=== PATIENT | male | born 1960 | race Caucasian/White ===

== ENCOUNTER 2019-06-15 14:40 | Outpatient (REF) | payer BC, SELFPAY ==
[2019-06-16 07:40] LABS: COVID-19 RT-PCR UVMMC Result Negative (Negative)
== END 2019-06-15 15:00 ==
LOC: NCHCN 14:40
PROVIDERS: PCP Family Medicine; Visit Provider Physician Assistant
DX: Z11.59 Encounter for screening for other viral diseases (principal)
CPT/HCPCS: U0003

== ENCOUNTER 2019-06-19 18:13 | Outpatient (REF) | payer BC, SELFPAY ==
[2019-06-19 19:05] LABS: HCT 42.1 % (40.0-50.0); HGB 14.3 g/dL (13.5-17.5); Mean Corpuscular Hemoglobin 31.2 pg (27.0-33.0); Mean Corpuscular Volume 91.7 fL (80-95); Mean Platelet Volume 10.3 fL (8.0-11.0); Platelet Count 245 x1000/uL (130-400); RBC 4.59 m/cumm (4.50-6.00); RBC Distribution Width 12.8 % (11.8-14.1); White Blood Cell Count 6.05 k/cumm (4.4-10.8)
[2019-06-19 19:15] LABS: ALT 45 U/L (16-63); AST 19 U/L (15-37); Albumin 3.7 g/dL (3.4-5.0); Alkaline Phosphatase 59 U/L (46-116); Anion Gap 7.9 mmol/L (3-11); BUN 21 mg/dL (7-18); Bilirubin, Total 0.4 mg/dL (0.2-1.0); CO2 28.1 mmol/L (21.0-32.0); CREATININE 1.09 mg/dL (0.70-1.30); Calcium 8.6 mg/dL (8.5-10.1); Calculated LDL 102 mg/dL (<100); Chloride 103 mmol/L (98-107); Cholesterol 193 mg/dL (<200); Glucose 98 mg/dL (74-106); HDL Cholesterol 46 mg/dL (40-60); Potassium 4.2 mmol/L (3.5-5.1); Sodium 139 mmol/L (136-145); Total Protein 6.6 g/dL (6.4-8.2); Triglyceride 226 mg/dL (<150)
[2019-06-19 19:22] LABS: Hemoglobin A1C 5.5 % (3.8-5.6)
[2019-06-21 09:47] LABS: PSA, Screening 1.7 ng/mL (0.0-3.5)
[2019-06-21 10:54] LABS: Hepatitis C Ab w Rflx HCV PCR Negative (Negative)
== END 2019-06-19 18:33 ==
LOC: NCHCN 18:13
PROVIDERS: PCP Family Medicine; Visit Provider Family Medicine
DX: Z00.00 Encounter for general adult medical examination without abnormal findings (principal); K92.1 Melena; Z13.220 Encounter for screening for lipoid disorders; Z13.1 Encounter for screening for diabetes mellitus; Z12.5 Encounter for screening for malignant neoplasm of prostate; Z11.59 Encounter for screening for other viral diseases
CPT/HCPCS: 80053; 80061; 84153; 85027; 86803; 83036

== ENCOUNTER 2019-06-22 08:05 | Outpatient (CLI) | payer BC, SELFPAY ==
--- NOTE | 2019-06-22 14:07 | DI.RAD_ITS ---
EXAM: XR FOOT RT COMPLETE CLINICAL HISTORY: RT FOOT PAIN, M79.671,PROGRESSIVE NON TRAUMATIC PAIN, TENDERNESS BASE RT 5T. TECHNIQUE: 2D digital imaging was performed. COMPARISON: No exams were available for comparison FINDINGS: No acute fracture or dislocation is seen. There are degenerative changes at the talonavicular joint and 1st MTP joint. No suspicious bony erosions. IMPRESSION: Degenerative changes. No acute abnormality.. DATA REPOSITORY: RADIATION DOSE DELIVERED:
== END 2019-06-22 08:25 ==
PROVIDERS: PCP Family Medicine; Visit Provider Family Medicine
DX: M79.671 Pain in right foot (principal); M19.071 Primary osteoarthritis, right ankle and foot
CPT/HCPCS: 73630

== ENCOUNTER 2020-02-15 10:23 | Emergency (ER) | payer OTHER, SELFPAY ==
--- NOTE | 2020-02-15 10:25 | ED.GENADUL_ITS ---
Discharge Plan Disposition Patient Disposition: HOME Condition: Stable Discharge Details Clinical Impression: Right knee sprain Primary Care Provider: Martín Griffith ED Provider: Lyubov Marks Home Meds and New Rx's Prescriptions: Continued tamsulosin 0.4 mg capsule 0.4 mg PO DAILY RF: 0 finasteride 5 mg tablet 5 mg PO DAILY RF: 0 Discharge Instructions Instructions: Knee Sprain (ED) Additional Instructions: Rest, ice, and elevate the affected area as much as possible. Alternate tylenol and motrin as needed and directed for pain. Follow-up with your scheduled appointment with Dr. Espinosa on February 25 and you can discuss any concerns about your right knee if you are still having pain, swelling or any other concerns. Return immediately to the emergency department if you develop any worsening or new concerning symptoms. Stand Alone Forms: Work Release Referrals: Giovani Espinosa MD [ [facility] STAFF PHYSICIAN] - Discharge Data Discharge Date/Time-TO BE ENTERED AT DEPARTURE: 02/15/20 12:37 Discharge Physician: Lyubov Marks Medical Decision Making 59 year-old male presents with right knee injury after slipping on ice when stepping out of his truck at work yesterday. Pain in right medial knee with weightbearing and range of motion. Patient is holding his right knee extended with ambulation. Right knee appears normal, inspection of pain with full flexion and extension. He has pain with Reyes's test medially. There is no ligamentous laxity or pain with valgus stress. Patient referred for x-ray which noted significant degenerative joint disease. Patient has an appointment with Dr. Espinosa for his left knee arthritis with potential surgery. He is advised to discuss with him any need for additional testing or treatment for right knee. Suspect most likely strain at this time but may need an MRI at a later date to confirm meniscal injury. Advised on the importance of RICE. Usual and customary return precautions given prior to discharge. Medical Records Medical records reviewed: Yes I reviewed the patient's medical records. Imaging Data Radiologic Study: Radiologist's impression: XR Right Knee Exam date and time: 02/15/2020 11:25 AM Age: 59 years old Clinical indication: Pain; Knee; Right; Patient HX: Twisting injury/fall. TECHNIQUE: Imaging protocol: XR Right knee. Views: 3 views. COMPARISON: No relevant prior studies available. FINDINGS: Bones/joints: Pathologic medial knee joint space narrowing with femoroacetabular degenerative spurring. Milder spurring in the lateral compartment. Tibial spine and patellofemoral degenerative spurring. No acute fracture or joint effusion. No bone lucencies suspicious for osteonecrosis. Soft tissues: Normal. IMPRESSION: Diffuse knee degenerative disease with pathologic medial knee joint space narrowing but no acute fracture or findings suspicious for osteonecrosis. HPI General Mode of arrival: ambulatory . Date/Time Provider Initiated Documentation: 02/15/20 10:24 . Limitations to Documentation: no limitations . Information obtained by: patient . HPI Narrative: Patient is a 59-year-old male who presents with right knee pain after slipping on ice upon stepping out of his truck at work yesterday. Patient states he feels like he twisted his knee and is now having pain on his medial aspect. He states the pain awoke him from sleep while turning in bed. He states the pain is worse with bending and weightbearing. He has not taken any medication for pain today. Patient states he has an appointment with Dr. Espinosa on February 25 for potential surgery for severe arthritis in his left knee. Related Data Home Medications Medication Instructions Recorded Confirmed finasteride 5 mg PO DAILY 02/15/20 02/15/20 tamsulosin 0.4 mg PO DAILY 02/15/20 02/15/20 Allergies Allergy/AdvReac Type Severity Reaction Status Date / Time No Known Allergies Allergy Unverified 02/15/20 10:40 Review of Systems All systems reviewed & are unremarkable except as noted in HPI and below [facility] Medical History (Updated 02/15/20 @ 12:16 by Lyubov Marks DO) Arthritis Social History Smoking/Tobacco Use Status: Former Tobacco Use Smoking risk assessment performed?: Yes Alcohol Intake: current Alcohol Intake frequency: a few times a week Drug use: Never Substance use type: does not use Do you feel safe at home: Yes Do you feel safe in your relationship?: Yes Exam Const General: cooperative, healthy appearing and no acute distress HENMT Head: normal to inspection Mouth: oral mucosae normal Eyes General: appearance normal, both eyes and all related structures Neck Neck: normal visual inspection Resp Effort & Inspection: normal respiratory effort and able to speak in complete sentences Cardio Rate: regular rate Skin General skin exam: no rashes or lesions noted Neuro General: patient alert, patient awake and patient oriented x3 Motor: muscle tone normal throughout Extrem Other: Pain in right medial knee with range of motion. Tenderness to palpation of right medial knee. Pain with Reyes's test medially. No pain with valgus or varus stress. Negative anterior and posterior drawer test. Right anterior knee with minimal anterior edema, no erythema, ecchymosis, crepit us or open wounds. Right DP/PT pulses intact. Psych Appearance: grossly normal Affect: normal affect
[2020-02-15 10:37] VITALS: BP 122/83; PULSE 63; RESP 16; TEMP 36.5; O2SAT 99
--- NOTE | 2020-02-15 10:45 | DI.RAD_ITS ---
EXAM: XR KNEE RT 3V AP,LAT,ZINA CLINICAL HISTORY: s/p twisting injury, r/o acute fx/effusion TECHNIQUE: COMPARISON: No exams were available for comparison FINDINGS: Three views were obtained. There is marked loss of the medial tibiofemoral cartilaginous joint space . Moderate marginal osteophytes all 3 joints noted. Mild subchondral sclerosis at the medial joint. There is no evidence of acute fracture or dislocation. IMPRESSION: RADIATION DOSE DELIVERED: Total DLP
[2020-02-15] MEDS: Ibuprofen 600 MG TAB PO (11:06)
--- NOTE | 2020-02-15 12:14 | DI.VRAD_ITS ---
PROCEDURE INFORMATION: Exam: XR Right Knee Exam date and time: 02/15/2020 11:25 AM Age: 59 years old Clinical indication: Pain; Knee; Right; Patient HX: Twisting injury/fall. TECHNIQUE: Imaging protocol: XR Right knee. Views: 3 views. COMPARISON: No relevant prior studies available. FINDINGS: Bones/joints: Pathologic medial knee joint space narrowing with femoroacetabular degenerative spurring. Milder spurring in the lateral compartment. Tibial spine and patellofemoral degenerative spurring. No acute fracture or joint effusion. No bone lucencies suspicious for osteonecrosis. Soft tissues: Normal. IMPRESSION: Diffuse knee degenerative disease with pathologic medial knee joint space narrowing but no acute fracture or findings suspicious for osteonecrosis. Dictated and Authenticated by: Slim Luna MD. Ordering:ARJUN Mcarthur MD
[2020-02-15 12:33] VITALS: BP 130/90; PULSE 56; RESP 18; TEMP 36.4; O2SAT 97
== END 2020-02-15 12:37 | disposition home or self-care (01) ==
PROVIDERS: Emergency Provider Physician Assistant; PCP Family Medicine
DX: S83.8X1A Sprain of other specified parts of right knee, initial encounter (principal); W00.0XXA Fall on same level due to ice and snow, initial encounter; X50.9XXA Other and unspecified overexertion or strenuous movements or postures, initial encounter; Y99.0 Civilian activity done for income or pay
CPT/HCPCS: 73562; 99283

== ENCOUNTER 2020-02-28 11:32 | Outpatient (CLI) | payer BC, SELFPAY ==
--- NOTE | 2020-02-28 11:15 | DI.RAD_ITS ---
EXAM: XR KNEE LT 2V AP,LAT CLINICAL HISTORY: knee pain TECHNIQUE: COMPARISON: CR,XR XR KNEE RT 3V AP,LAT,ZINA from 02/15/2020 FINDINGS: Three views were obtained. There is severe narrowing of the medial tibiofemoral cartilaginous joint space mild subchondral sclerosis of the adjacent bones. There are prominent marginal osteophytes of all 3 joints of knee. There is medial subluxation of femur on the tibia IMPRESSION: Severe DJD predominantly involving medial tibiofemoral joint RADIATION DOSE DELIVERED: Total DLP
--- NOTE | 2020-02-28 11:15 | DI.RAD_ITS ---
EXAM: XR STANDING ALIGNMENT CLINICAL HISTORY: knee pain TECHNIQUE: COMPARISON: No exams were available for comparison FINDINGS: AP views both lower extremities were obtained for alignment and leg length determination. There are severe degenerative changes of the medial tibiofemoral joints bilaterally. IMPRESSION: RADIATION DOSE DELIVERED: Total DLP
== END 2020-02-28 11:52 ==
PROVIDERS: PCP Family Medicine; Referring Provider Family Medicine; Visit Provider Physician Assistant
DX: M17.12 Unilateral primary osteoarthritis, left knee (principal); S83.192A Other subluxation of left knee, initial encounter
CPT/HCPCS: 73560; 77073

== ENCOUNTER 2020-03-21 01:22 | Outpatient (CLI) | payer BC, SELFPAY ==
[2020-03-21 11:37] LABS: HCT 44.4 % (40.0-50.0); HGB 14.7 g/dL (13.5-17.5); MCH 30.2 pg (27.0-33.0); MCHC 33.1 % (32.0-36.0); MCV 91.2 fL (80-95); MPV 9.6 fL (8.0-11.0); Platelet Count 206 10^3/uL (130-400); RBC 4.87 10^6/uL (4.36-5.78); RDW 12.2 % (11.8-14.1); WBC 4.99 10^3/uL (4.4-10.8)
[2020-03-21 12:38] LABS: Anion Gap 8.4 mmol/L (3-11); BUN 13 mg/dL (7-18); CO2 28.6 mmol/L (21.0-32.0); Calcium 8.8 mg/dL (8.5-10.1); Chloride 103 mmol/L (98-107); Glucose 101 mg/dL (74-106); Potassium 4.3 mmol/L (3.5-5.1); Sodium 140 mmol/L (136-145)
== END 2020-03-21 01:23 | disposition home or self-care (01) ==
LOC: LBO 01:22
PROVIDERS: PCP Family Medicine; Visit Provider Student in an Organized Health Care Education/Training Program
DX: M25.561 Pain in right knee (principal); M17.11 Unilateral primary osteoarthritis, right knee
CPT/HCPCS: 36415; 80048; 85027

== ENCOUNTER 2020-03-21 02:01 | Outpatient (CLI) | payer BC, SELFPAY ==
[2020-03-22 14:39] LABS: COVID-19 RT-PCR UVMMC Result Negative (Negative)
== END 2020-03-21 02:02 | disposition home or self-care (01) ==
LOC: LBO 02:02
PROVIDERS: PCP Family Medicine; Visit Provider Student in an Organized Health Care Education/Training Program
DX: Z20.822 Contact with and (suspected) exposure to COVID-19 (principal); Z01.818 Encounter for other preprocedural examination
CPT/HCPCS: U0003

== ENCOUNTER 2020-03-26 06:02 | Day surgery (SDC) | payer BC, SELFPAY ==
[2020-03-26] VITALS (9 sets, daily range): BP systolic 98–123; BP diastolic 60–76; PULSE 43–78; RESP 12–16; TEMP 36.3–36.5; O2SAT 94–98
[2020-03-26] MEDS: Gabapentin 300 MG CAP PO (07:15)
[2020-03-26] MEDS: Lactated Ringers 1,000 ML 80 ML IV (07:15)
[2020-03-26] MEDS: Acetaminophen 500 MG TAB 1000 MG PO (07:15)
[2020-03-26] MEDS: Celecoxib 200 MG CAP 400 MG PO (07:16)
--- NOTE | 2020-03-26 07:31 | W.PM.DSUDISC ---
Discharge Plan Disposition Patient Disposition: HOME Condition: Good Discharge Details Reason For Visit: Right KNee DJD Attending Provider: Giovani Espinosa Primary Care Provider: Martín Griffith Home Meds and New Rx's Prescriptions: New acetaminophen 500 mg tablet 500 mg PO Q6H PRN PRN (Reason: pain) Qty: 90 RF: 3 celecoxib 200 mg capsule 200 mg PO BID PRN (Reason: pain) Qty: 60 RF: 1 aspirin 81 mg tablet,delayed release (DR/EC) 81 mg PO BID Qty: 60 RF: 0 docusate sodium [Colace] 100 mg capsule 100 mg PO BID PRNQty: 10 RF: 0 pantoprazole 40 mg tablet,delayed release (DR/EC) 40 mg PO DAILY Qty: 30 RF: 0 gabapentin 300 mg capsule 300 mg PO QHS Qty: 14 RF: 0 oxycodone 5 mg tablet 5 mg PO Q4H Qty: 18 RF: 0 Continued multivitamin Tablet 1 tab PO DAILY RF: 0 tamsulosin 0.4 mg capsule 0.4 mg PO DAILY RF: 0 finasteride 5 mg tablet 5 mg PO DAILY RF: 0 Discharge Instructions Additional Instructions: Total Knee Discharge Instructions Activity: The most important activity is to walk. You should try to take short walks a few times a day. It is important that when resting you work on keeping the knee straight. Avoid putting a pillow behind the knee as this will encourage flexion. Work on range of motion exercises as provided by Physical Therapy. - Start outpatient physical therapy within 2 weeks. - You should wear the KAVYA hose on both legs for 2 weeks. You may remove these at night. You may also use any compression sock in place of the KAVYA hose. Dressing: You may remove the Víctor wrap on your leg 2 days after your surgery and put on the KAVYA stocking given to you from the hospital. Keep the surgical dressing (underneath the VÍCTOR wrap) in place for at least one week. After the first week it may be removed and replaced with light gauze and tape or nothing. The wound and dressing may get wet after 3 days but avoid soaking the dressing or otherwise it will need to be changed. Many people prefer covering the dressing with cling wrap (saran wrap) to minimize it from getting soaked. If it gets wet, just pat dry. If it starts to peel off then it will need to be changed. Medications: - You should take Tylenol and anti-inflammatory Celebrex as your primary pain control medications. If the Celebrex is too expensive or not covered, please call the office for another alternative (Advil/Ibuprofen or Naproxen/Aleve) - You have been prescribed a stronger pain medication Oxycodone for breakthrough pain, take as needed as prescribed. - You have also been prescribed a stomach acid reduction agent Pantoprozole to help reduce stomach acid and reflux. - You have been prescribed Gabapentin to take at night for restlessness and nerve pain. - You will be taking Aspirin 81mg twice a day for DVT prevention unless instructed otherwise. - If you have constipation you should take Colace or Miralax (both [id number]). It takes most people 3-4 days to have a bowel movement. Follow-up: 2 weeks If you have any acute concerns or questions, please do not hesitate to contact the office at [phone]. You may contact Dr. Espinosa with any questions after hours through the hospital at [phone] or on his cell phone at [phone]. Referrals: Giovani Espinosa MD [ [facility] STAFF PHYSICIAN] - Equipment/Supplies: Partial Weight Bearing Crutches Activity:: Activity as Tolerated Shower/Bathe:: 72 hours Diet:: As Tolerated Discharge Orders Discharge Orders: Discharge Order (Routine); Ordered 03/26/20 Ordered By: Giovani Espinosa DS: Diagnosis Discharge Diagnosis (1) Primary osteoarthritis of right knee: Status: Acute
[2020-03-26] MEDS: ceFAZolin 2 GM/50 ML BAG IVPB (07:37)
[2020-03-26] MEDS: Bupivacaine 0.25% Pres-Free 30 ML VIAL (08:26)
[2020-03-26] MEDS: Ketorolac 30 MG/ML VIAL (08:27)
[2020-03-26] MEDS: Normal Saline 20 ML VIAL (08:27)
--- NOTE | 2020-03-26 10:11 | ROE_ITS ---
Date of service: 03/26/20 Time of Service: 09:42 Operative Note Operative Note DATE OF PROCEDURE: 03/26/20 PRE-OP DIAGNOSIS: Right Knee Osteoarthritis POST-OP DIAGNOSIS: same PROCEDURE: Right Total Knee Replacement SURGEON: Giovani Espinosa FUNCTIONAL ARCHITECT: Luis Eduardo Mesa ANESTHESIA: regional and spinal ESTIMATED BLOOD LOSS: 300 PATHOLOGY: none sent TOURNIQUET TIME: 0 COMPLICATIONS: None Patient was transported to: PACU Patient's condition: stable Implants: 1. Depuy Attune Cementless Cruciate Retaining Femoral Component, Size 8 2. Depuy Attune Cementless Rotating Platform Tibial Component, Size 7 3. Depuy Attune 8x6mm CR/RP Poly 4. Depuy Attune Patellar Component, Size 41 Indications: I have seen To in clinic for symptoms of knee arthritis, confirmed with radiographic findings. He has exhausted nonoperative methods and was having significant limitations in daily function and desired better function and less pain. I discussed the technical details of a knee replacement. I explained the risks of the procedure to include, but not limited to, bleeding, infection, pain, stiffness, fracture, damage to nerves and vessels, damage to muscles and tendons, loosening, need for repeat procedure, blood clot and cardiopulmonary demise. Despite these risks, To elected to proceed. Findings: There was significant signs of arthritis throughout the knee with all 3 compartments involved, worse medially. Procedure Description: To was greeted in the preoperative holding area where the correct side was identified and marked. The consent was reviewed with the patient and signed. The history and physical was updated. All questions were answered. Preoperative medications were administered: Acetaminophen 1000mg, Celebrex 400mg, and Gabapentin 300mg. An adductor canal block was then administered by the anesthesia team in the PACU. To was taken back to the operating room. A spinal anesthestic was then administered. The patient was placed into the supine position on the operating room table. A nonsterile tourniquet was placed high onto the leg but only used for cementing. Posts were placed for positioning during the procedure. All bony prominences were well padded. Prophylactic antibiotics in the form of Cefazolin were administered. 1g of Tranxemic Acid was given intravenously within 30 minutes of incision. The right leg was then prepped with Chloraprep a nd draped in a standard fashion with impervious stockinette. A second prep with Chloraprep was performed prior to application of Iodine impregnated skin protection. A timeout to confirm correct identity, side and site, procedure, allergies, anesthesia, and medical concerns was performed. With the knee in some flexion, a midline incision was made overlying the knee. Full thickness skin flaps were raised once the extensor mechanism was encountered. These were raised medially and laterally. Any bleeding was controlled with electrocautery. Once the extensor mechanism was fully exposed, a medial parapatellar arthrotomy was performed in a flexed position. All bleeding from the arthrotomy and the geniculate arteries was coagulated. A medial subperiosteal peel was performed with electrocautery to the midcoronal plane. The fat pad was removed while keeping the patellar tendon protected. The anterior distal femur synovium was removed for later visualization. The ACL and PCL were resected and the anterior horn of the lateral meniscus was transected. The knee was then flexed with the patella everted. Large osteophytes from the tibia were removed. Large osteophytes from the femur were removed. Using a step drill, and based on preoperative templating, the femoral canal was entered. This was done with a step drill without any difficulty. The intramedullary distal femoral cut guide was inserted, set to a 5 degree valgus cut and 9mm cut thickness. There was some hypoplasia of the lateral femoral condyle and any remnant cartilage of the medial femoral condyle was removed for appropriate thickness. The distal femoral cut guide was then held in position and pinned. With the soft tissues protected, the distal cut was performed. This was passed over a few times to ensure a planar cut. I then turned attention to the tibia. The extramedullary guide was placed onto the leg. The distal aspect was slid medial to adjust for position of center of ankle and stay in line with shaft of the tibia. Approximately 3-5 degrees of posterior slope was kept in the proximal cutting guide. The center of the guide was aligned with the PCL. The stylus was used to assess cut thickness. The medial side, most involved side, was set for a 4mm cut. This was then held in position and pinned into place with 2 additional pins and a cross pin for stability. The medial and lateral collateral ligaments were protected and the cut was performed. With this completed, it was assessed and noted to be of appropriate dimensions. The guide was removed. A spacer block was inserted and the knee was brought into extension. The 6mm spacer block provided full extension, without hyperextension and with stability of both the medial and lateral collateral ligaments was assessed. The pins from the femur and the tibia were then removed. The distal femur was then sized. The anterior stylus was placed onto the lateral ridge of the anterior femur. This indicated a size 8 femur. The external rotation of the guide was adjusted to 3 degrees to match the epicondylar axis, perpendicular to [place]?s line. The 4-in-1 cutting guide was the placed. The posterior medial femur cut was evaluated and appeared of good thickness. The spacer block was inserted underneath the cutting guide and stability was confirmed in 90 degrees of flexion. An neyda wing was used to confirm appropriate position of the anterior cut to avoid notching. This cutting guide was ensured to be flush on the cut surface and then pinned into place with headed pins. While protecting the soft tissues, quad tendon, and collateral ligaments, the anterior and posterior cuts were performed with a saw. The central two pins were removed and the posterior and anterior chamfers were cut next. The notch-cutting guide was placed. This was pinned to lateralize the femoral component as much as possible while keeping it flush on the cut surface. This was then pinned into position. A reciprocating saw was used to make the notch cut. A rasp smoothed the cut surfaces. The medial and lateral menisci were removed. A trial femoral component was then inserted, impacted down to the cut surfaces, and the lug holes were drilled. A provisional trial tibial component was placed and the knee was brought through range of motion. There was noted to be excellent extension and flexion. There was no significant instability. The patella was tracking without thumbs. A size 6mm polyethylene component provided the best range of motion and stability with less than 2mm gapping with medial and lateral stress and full extension without significant hyperextension. The tibial cut surface was fully exposed. The tibia was then sized as a 7. The tibia had been previously marked during trialing to correspond to the center of the tibial component to help with rotation. The trial was aligned to this luis eduardo, approximately rotated to the medial 1/3rd of the tibial tubercle. The trial was pinned into place. The tibia was prepared with a reamer and a keel punch and lug holes. The knee was then brought into extension and the patella was measured as 32mm. Using the patellar clamp and cut guide, this was resected to a flat surface with at least 13mm of thickness remaining. The size 41 patella fit the best. This was oriented and then clamped into position. The lugs were drilled. The trial components were removed. The final components were opened on the back table. The periosteal and capsular tissues, especially posteriorly, around the knee were then systematically injected with a periarticular cocktail consisting of 50cc 0.25% Marcaine, 30mg Ketorolac, 20cc of Exparal and 50cc of injectable saline. The knee was thoroughly irrigated with a pulse lavage and dried. Irrisept was also used to irrigate the tissues. On the back table, with the implants opened, the cement was mixed. One batche of high viscosity cement were prepared with vacuum assistance. After the cement was ready a small amount was placed on the cut surface of the patella and the patellar button was clamped into position and held. During this process attention was turned to the gutters of the knee and for all interfaces for any excess cement. While the cement was hardening, the cementless knee components were placed. Starting with the tibial component, the tibia was subluxed anteriorly and the lug holes of the component were lined up. The tibia was then impacted with an impactor and mallet until the tibial component was in contact with the tibia. The final polyethylene component was inserted. Then, the femoral component was inserted. The lug holes were aligned and the component was impacted into position. The knee was irrigated with Irrisept chlorhexadine solution. This was allowed to sit in the knee for 3 minutes. After the cement had finally cured, approximately 15min, the clamp was removed from the patella and the knee was taken through range of motion. The patella was tracking with a no-thumbs technique. The capsule was then reapproximated with a No. 1 Vicryl at multiple locations. The capsule was finally closed with a No. 2 Stratafix, barbed suture. The tourniquet was then released and the arthrotomy appeared watertight without significant bleeding. The second dosing of 1g TXA was started. Deep tissues were then reapproximated with 0 Vicryl and 2-0 Vicryl. The skin was closed with a running 3-0 Monocryl in a subcuticular fashion. This was reinforced with skin glue. A Mepilex silver dressing was applied along with a nobj-os-movop UVALDO wrap. A CryoCuff was applied. To was transferred to the hospital bed without difficulty and suffering no apparent complication. To has a good prognosis. Physical therapy will start today and without restrictions, weight-bearing as tolerated. Aspirin 81mg BID will be used for DVT prophylaxis.
[2020-03-26] MEDS: oxyCODONE 5 MG TAB PO ×2 (11:31→13:06)
--- NOTE | 2020-03-26 12:40 | PT.INIE ---
Date of service: 03/26/20 Time of Service: 12:40 PT Notes Visit Reasons: Right KNee DJD Physical Therapy Day Surgery Initial Evaluation Date: 03/26/2020 Referring Doctor: Giovani Espinosa MD PT Orders: PT CONSULT: Status post Ortho surgery. Precautions: WBAT on right LE. Patient Profile/Admitting Diagnosis: Ghanshyam is a 59-year-old male with primary unilateral osteoarthritis of the right knee and is status post right total knee arthroplasty on postoperative day 0. PMHX: Medical History (Updated 03/21/20 @ 10:56 by Kristin Medrano) Arthritis BPH (benign prostatic hyperplasia) Lumbar spine pain L4-L5 cartilage damage - 1988 Went to [facility] - did 6 months of PT and had improvement Surgical History (Updated 03/21/20 @ 10:23 by Kristin Medrano) Fingers fractured S/P Perc pinning Status post arthroscopy of left knee Social History/Home Situation: Lives alone in an apartment with a flight of stairs down to where his bedroom is with rails on both sides. He has 2 steps that lead onto a landing plus another 4 steps to enter the apartment building. States that he has friends who will be willing to help out as needed while he recovers at home. Indicated that his house has been organized and set up to be handicap-accessible. Equipment Owned/DME: None Subjective: Agreeable to PT consult. Reports up to 7/10 pain in the right knee after ambulation activity. Complains about some minimal popping on the outer side of the right knee with weight bearing. Denies headache, chest pain, and dizziness throughout. No report of numbness nor tingling in bilateral lower extremities. Objective: General Observation: Supine in stretcher. UVALDO wraps to right LE. Cryo/Cuff on right knee. TEDS on left leg. DIPs in the right hand flexed and ulnarly deviated. Mental Status: Alert and oriented x4. Pain: 7/10 in the lateral right knee with ambulation activity that subsided rest and pain pill given by nurse Barron ROM: Right Upper Extremity: Shoulder Flexion WFL. Shoulder abduction WFL. Elbow flexion WFL. Wrist flexion WFL. Functional opening and closing of hand WFL. Left Upper Extremity: Shoulder Flexion WFL. Shoulder abduction WFL. Elbow flexion WFL. Wrist flexion WFL. Functional opening and closing of hand WFL. Right Lower Extremity: Hip flexion WFL. Hip abduction WFL. Knee flexion 10 degrees to 80 degrees with pain at end range of motion. Extension -10 degrees ankle dorsiflexion WFL. Ankle plantarflexion WFL. Left Lower Extremity: Hip flexion WFL. Hip abduction WFL. Knee flexion WFL. Ankle dorsiflexion WFL. Ankle plantarflexion WFL. Strength: Right Upper Extremity: Shoulder flexors 5/5. Shoulder abductors 5/5. Elbow flexors 5/5. Elbow extensors 5/5. Temporary Staff Accountant strong. Left Upper Extremity: Shoulder flexors 5/5. Shoulder abductors 5/5. Elbow flexors 5/5. Elbow extensors 5/5. Temporary Staff Accountant strong. Right Lower Extremity: Hip flexors 4/5. Hip abductors 4/5. Knee flexors 3-/5. Knee extensors 3-/5. Ankle dorsiflexors 5/5. Ankle plantarflexors 5/5. Left Lower Extremity:Hip flexors 5/5. Hip abductors 5/5. Knee flexors 5/5. Knee extensors 5/5. Ankle dorsiflexors 5/5. Ankle plantarflexors 5/5. Sensation: Intact as to pain and light pressure in bilateral lower extremities Bed Mobility/Transfers: Rolling independent Supine to sit independent Sit to supine independent Sit to stand contact-guard assist Stand to sit contact-guard assist Bed to chair contact-guard assist Chair to bed contact-guard assist Gait: Guided patient through level surface ambulation of 30 feet using the front wheeled walker with standby assist. Also trained and educated patient on the use of bilateral axillary crutches using three-point gait pattern for a distance of 200 feet requiring moderate verbal cueing for safe gait pattern with standby assist of nurse Barron for safety. Pain reported increased to 7/10 in the right knee. Stairs: Also assisted with stair negotiation techniques for 10 x 4 inch steps while holding onto 1 rail with 1 hand and using a crutch on the other hand using step to gait pattern with contact-guard assist and standby assist of nurses Celina Cortez and Gabriela saavedra. Moderate verbal cueing given for correct technique. Balance: Static Sitting: Normal Dynamic Sitting: Normal Static Standing: Good Dynamic Standing: Fair Special Tests: Mobility Limitations Standardized Measure [facility] AM-PAC 6 clicks Basic Mobility Inpatient Short Form: Raw Score: 21 CMS Score: 29% deficit Informed Consent/Education: Patient instructed in purpose of PT consult. Packet containing TKA exercise protocol has been given to patient. Education and training on initial set of exercises that can be done at home have been completed with patient. Assessment: Skip requires the use of bilateral axillary crutches to reduce fall risk and maximize independence at home. It was emphasized to him to slow down with each step as he tends to move quickly and increase his risk for losing balance. He was also advised that he has the option of using the front-wheeled walker for more support should his pain level increase. Patient presents with clinical signs and symptoms consistent with current/admitting diagnoses that have resulted to mobility limitations, gait instability, generalized weakness, and impairment of motor control as demonstrated by the following impairment level findings: 1. Decreased strength to right knee major muscle groups 2. Impaired standing balance 3. Limitation of joint range of motion in right knee Impairments are contributing to the following functional limitations: 1. Inability to safely ambulate without assistive device 2. Increase completion time for mobility ADL performance 3. Increased fall risk Patient is assessed as a 16969 moderate complexity based on the following: History: 59-year-old male with impairment level findings, functional limitations, and past medical history as indicated above Examination: Demonstrable impairment in strength, balance, and mobility level with underlying impairments and functional limitations as documented above Presentation: Evolving Decision Makin moderate complexity Goals: N/A. PT evaluation and 1-2 treatment sessions only for functional mobility training using recommended AD and for HEP instruction. Plan of Care/Treatment Plan: N/A. PT evaluation and 1-2 treatment session only for functional mobility training using recommended AD and for HEP instruction. DISCHARGE RECOMMENDATIONS: Home when medically cleared by orthopedic surgeon. Has a front wheeled walker and bilateral axillary crutches for use at home as needed. May benefit from outpatient PT services in order to facilitate return to unassisted ambulation in the community as previously. TREATMENT CODE/TIME: 61197 x 30 minutes, 22382 x 10 minutes beginning at 12:40 PM. Thank you for the opportunity to participate in the care of this patient. Treva Wiley PT, DPT, CLT [facility] [place], [place]
== END 2020-03-26 14:27 | disposition home or self-care (01) ==
PROVIDERS: PCP Family Medicine; Visit Provider Student in an Organized Health Care Education/Training Program
PROC: (CPT 27447; principal; 2020-03-26 07:30)
DX: M17.11 Unilateral primary osteoarthritis, right knee (principal); M25.561 Pain in right knee; Z96.651 Presence of right artificial knee joint; G89.18 Other acute postprocedural pain
CPT/HCPCS: 27447; C1776; 76942; 97162; 97530; J0690; J1885; J2001; J2250; J2405

== ENCOUNTER 2020-04-11 10:29 | Outpatient (CLI) | payer BC, SELFPAY ==
--- NOTE | 2020-04-11 09:00 | DI.RAD_ITS ---
EXAM: XR STANDING ALIGNMENT CLINICAL HISTORY: 1ST POST OP R TKA. TECHNIQUE: 2D digital imaging was performed. COMPARISON: CR,XR XR KNEE RT 3V AP,LAT,ZINA from 02/15/2020 CR XR KNEE LT 2V AP,LAT from 02/28/2020 CR XR STANDING ALIGNMENT from 02/28/2020 CR XR KNEE LT 2V AP,LAT from 02/28/2020 CR XR KNEE LT 1V from 04/11/2020 CR XR KNEE LT 1V from 04/11/2020 CR XR KNEE RT 1V from 04/11/2020 FINDINGS: Hip joint spaces are well maintained. There is mild acetabular spurring) greater than left. There i s a mild overall leg length discrepancy at the level of the femoral heads, with the left femoral head projecting 8 millimeters superior to the right. There is a left knee prosthesis. Alignment appears satisfactory. There is there are no abnormal bony lucencies. There is severe degenerative changes of right knee greater medially. Mild degenerative changes of the ankles. IMPRESSION: Severe degenerative changes of the left knee. Right knee prosthesis. Mild leg length discrepancy. DATA REPOSITORY: RADIATION DOSE DELIVERED:
== END 2020-04-11 10:30 | disposition home or self-care (01) ==
LOC: DIORS 10:29
PROVIDERS: PCP Family Medicine; Referring Provider Family Medicine; Visit Provider Student in an Organized Health Care Education/Training Program
DX: Z96.651 Presence of right artificial knee joint (principal); M17.12 Unilateral primary osteoarthritis, left knee; M21.752 Unequal limb length (acquired), left femur
CPT/HCPCS: 73560; 77073

== ENCOUNTER 2020-04-23 06:19 | Day surgery (SDC) | payer BC, SELFPAY ==
[2020-04-23] VITALS (10 sets, daily range): BP systolic 104–146; BP diastolic 66–82; PULSE 49–82; RESP 10–16; TEMP 36–36.6; O2SAT 97–100
[2020-04-23] MEDS: Lactated Ringers 1,000 ML 80 ML IV (06:56)
[2020-04-23] MEDS: Celecoxib 200 MG CAP 400 MG PO (06:56)
[2020-04-23] MEDS: Acetaminophen 500 MG TAB 1000 MG PO (06:56)
[2020-04-23] MEDS: Gabapentin 300 MG CAP PO (06:57)
--- NOTE | 2020-04-23 07:16 | W.PM.DSUDISC ---
Discharge Plan Disposition Patient Disposition: HOME Condition: Good Discharge Details Reason For Visit: L Knee DJD Attending Provider: Giovani Espinosa Primary Care Provider: Martín Griffith Home Meds and New Rx's Prescriptions: Continued multivitamin Tablet 1 tab PO DAILY RF: 0 acetaminophen 500 mg tablet 500 mg PO Q6H PRN PRN (Reason: pain) Qty: 90 RF: 3 pantoprazole 40 mg tablet,delayed release (DR/EC) 40 mg PO DAILY Qty: 30 RF: 0 tamsulosin 0.4 mg capsule 0.4 mg PO DAILY RF: 0 finasteride 5 mg tablet 5 mg PO DAILY RF: 0 aspirin 81 mg tablet,delayed release (DR/EC) 81 mg PO BID Qty: 60 RF: 0 oxycodone 10 mg tablet 10 mg PO Q4H MDD 60mg PRN (Reason: pain) Qty: 18 RF: 0 Discontinued celecoxib 200 mg capsule 200 mg PO BID PRN (Reason: pain) Qty: 60 RF: 1 Discharge Instructions Additional Instructions: Total Knee Discharge Instructions Activity: The most important activity is to walk. You should try to take short walks a few times a day. It is important that when resting you work on keeping the knee straight. Avoid putting a pillow behind the knee as this will encourage flexion. Work on range of motion exercises as provided by Physical Therapy. - Start outpatient physical therapy within 2 weeks. - You should wear the KAVYA hose on both legs for 2 weeks. You may remove these at night. You may also use any compression sock in place of the KAVYA hose. Dressing: You may remove the Víctor wrap on your leg 2 days after your surgery and put on the KAVYA stocking given to you from the hospital. Keep the surgical dressing (underneath the VÍCTOR wrap) in place for at least one week. After the first week it may be removed and replaced with light gauze and tape or nothing. The wound and dressing may get wet after 3 days but avoid soaking the dressing or otherwise it will need to be changed. Many people prefer covering the dressing with cling wrap (saran wrap) to minimize it from getting soaked. If it gets wet, just pat dry. If it starts to peel off then it will need to be changed. Medications: - You should take Tylenol and anti-inflammatory Ibuprofen (600mg) as your primary pain control medications. - You have been prescribed a stronger pain medication Oxycodone for breakthrough pain, take as needed as prescribed. - You have also been prescribed a stomach acid reduction agent Pantoprozole to help reduce stomach acid and reflux. - You will be taking Aspirin 81mg twice a day for DVT prevention unless instructed otherwise. - If you have constipation you should take Colace or Miralax (both [id number]). It takes most people 3-4 days to have a bowel movement. Follow-up: 2 weeks If you have any acute concerns or questions, please do not hesitate to contact the office at [phone]. You may contact Dr. Espinosa with any questions after hours through the hospital at [phone] or on his cell phone at [phone]. Referrals: Giovani Espinosa MD [ [facility] STAFF PHYSICIAN] - Equipment/Supplies: Partial Weight Bearing Crutches Shower/Bathe:: 72 hours Diet:: As Tolerated Discharge Orders Discharge Orders: Discharge Order (Routine); Ordered 04/23/20 Ordered By: Giovani Espinosa DS: Diagnosis Discharge Diagnosis (1) Post-traumatic osteoarthritis of left knee: Status: Acute (2) History of total right knee replacement: Status: Acute
[2020-04-23] MEDS: ceFAZolin 2,000 MG in Normal Saline 100 ML 200 MG IVPB (07:32)
[2020-04-23] MEDS: Bupivacaine 0.25% Pres-Free 30 ML VIAL (08:58)
[2020-04-23] MEDS: Normal Saline 20 ML VIAL (08:58)
[2020-04-23] MEDS: Ketorolac 30 MG/ML VIAL (08:58)
--- NOTE | 2020-04-23 09:15 | ROE_ITS ---
Date of service: 04/23/20 Time of Service: 09:15 Operative Note Operative Note DATE OF PROCEDURE: 04/23/20 PRE-OP DIAGNOSIS: Left Knee Osteoarthritis and Right Knee Arthrofibrosis POST-OP DIAGNOSIS: same PROCEDURE: Left Total Knee Replacement and Right Knee Manipulation Under Anesthesia SURGEON: Giovani Espinosa SCENIC DESIGNER: Luis Eduardo Mesa ANESTHESIA TYPE: Spinal Refer to Anesthesia Record ESTIMATED BLOOD LOSS: 300 PATHOLOGY: none sent TOURNIQUET TIME: 0 COMPLICATIONS: None Patient was transported to: PACU Patient's condition: stable Implants: 1. Depuy Attune Cementless Cruciate Retaining Femoral Component, Size 8 2. Depuy Attune Cementless Rotating Platform Tibial Component, Size 7 3. Depuy Attune 8x5mm CR/RP Poly 4. Depuy Attune Patellar Component, Size 38mm Indications: I have seen To in clinic for symptoms of knee arthritis, confirmed with radiographic findings. He has exhausted nonoperative methods and was having significant limitations in daily function and desired better function and less pain. I discussed the technical details of a knee replacement. He has had good success with the right knee replacement except for mild stiffness. Once again, I explained the risks of the procedure to include, but not limited to, bleeding, infection, pain, stiffness, fracture, damage to nerves and vessels, damage to muscles and tendons, loosening, need for repeat procedure, blood clot and cardiopulmonary demise. Despite these risks, he elected to proceed. Findings: The right knee was manipulated under anesthesia going from 105 degrees of flexion to 125 degrees of flexion. There was significant signs of arthritis throughout the knee with notable medial osteophytes. Procedure Description: To was greeted in the preoperative holding area where the correct side was identified and marked. The consent was reviewed with the patient and signed. The history and physical was updated. All questions were answered. Preoperative medications were administered: Acetaminophen 1000mg, Celebrex 400mg, and Gabapentin 300mg. An adductor canal block was then administered by the anesthesia team in the PACU. He was taken back to the operating room. A spinal anesthestic was then administered. The patient was placed into the supine position on the operating room table. Posts were placed for positioning during the procedure. All bony prominences were well padded. Prophylactic antibiotics in the form of Cefazolin were administered. 1g of Tranxemic Acid was given intravenously within 30 minutes of incision. A timeout to confirm correct identity, side and site, procedure, allergies, anesthesia, and medical concerns was performed. A manipulation was then performed of the right leg. Treatment ablation range of motion was recorded as 5 to 105 degrees. Gentle flexion force was applied to the proximal tibia and there was some notable crepitus felt proximal to the patella. This was cycled a few times and repeated. After manipulation, the range of motion was recorded from 5 to 125 degrees. The left leg was then prepped with Chloraprep and draped in a standard fashion with impervious stockinette. A second prep with Chloraprep was performed prior to application of Iodine impregnated skin protection. With the knee in some flexion, a midline incision was made overlying the knee. Full thickness skin flaps were raised once the extensor mechanism was encountered. These were raised medially and laterally. Any bleeding was controlled with electrocautery. Once the extensor mechanism was fully exposed, a medial parapatellar arthrotomy was performed in a flexed position. All bleeding from the arthrotomy and the geniculate arteries was coagulated. A medial subperiosteal peel was performed with electrocautery to the midcoronal plane. Due to the significant varus deformity the entire medial tibial plateau was exposed. The fat pad was removed while keeping the patellar tendon protected. The anterior distal femur synovium was removed for later visualization. The ACL and PCL were resected and the anterior horn of the lateral meniscus was transected. The knee was then flexed with the patella everted. Large osteophytes from the tibia were removed. Large osteophytes from the femur were removed. Using a step drill, and based on preoperative templating, the femoral canal was entered. This was done with a step drill without any difficulty. The intramedullary distal femoral cut guide was inserted, set to a 5 degree valgus cut and 9mm cut thickness. The distal femoral cut guide was then held in po sition and pinned. With the soft tissues protected, the distal cut was performed. This was passed over a few times to ensure a planar cut. I then turned attention to the tibia. The extramedullary guide was placed onto the leg. The distal aspect was slid medial to adjust for position of center of ankle and stay in line with shaft of the tibia. Approximately 3-5 degrees of posterior slope was kept in the proximal cutting guide. The center of the guide was aligned with the PCL. The stylus was used to assess cut thickness. The medial side, most involved side, was set for a 3mm cut, corresponding to 7mm laterally. This was then held in position and pinned into place with 2 additional pins and a cross pin for stability. The medial and lateral collateral ligaments were protected and the cut was performed. With this completed, it was assessed and noted to be of appropriate dimensions. The guide was removed. A spacer block was inserted and the knee was brought into extension. The 5mm spacer block provided full extension, without hyperextension and with stability of both the medial and lateral collateral ligaments was assessed. The pins from the femur and the tibia were then removed. The distal femur was then sized. The anterior stylus was placed onto the lateral ridge of the anterior femur. This indicated a size 8 femur. The external rotation of the guide was adjusted to 3 degrees to match the epicondylar axis, perpendicular to Jitendra?s line. The 4-in-1 cutting guide was the placed. The posterior medial femur cut was evaluated and appeared of good thickness. The spacer block was inserted underneath the cutting guide and stability was confirmed in 90 degrees of flexion. An neyda wing was used to confirm appropriate position of the anterior cut to avoid notching. This cutting guide was ensured to be flush on the cut surface and then pinned into place with headed pins. While protecting the soft tissues, quad tendon, and collateral ligaments, the anterior and posterior cuts were performed with a saw. The central two pins were removed and the posterior and anterior chamfers were cut next. The notch-cutting guide was placed. This was pinned to lateralize the femoral component as much as possible while keeping it flush on the cut surface. This was then pinned into position. A reciprocating saw was used to make the notch cut. A rasp smoothed the cut surfaces. The medial and lateral menisci were removed. A trial femoral component was then inserted, impacted down to the cut surfaces, and the lug holes were drilled. A provisional trial tibial component was placed and the knee was brought through range of motion. There was noted to be excellent extension and flexion. There was no significant instability. The patella was tracking without thumbs. A size 5mm polyethylene component provided the best range of motion and stability with less than 2mm gapping with medial and lateral stress and full extension without significant hyperextension. The tibial cut surface was fully exposed. The tibia was then sized as a 7. The tibia had been previously marked during trialing to correspond to the center of the tibial component to help with rotation. The trial was aligned to this luis eduardo, approximately rotated to the medial 1/3rd of the tibial tubercle. The trial was pinned into place. The tibia was prepared with a reamer and a keel punch and lug holes. The knee was then brought into extension and the patella was measured as 32mm. Using the patellar clamp and cut guide, this was resected to a flat surface with at least 13mm of thickness remaining. The size 38 patella fit the best. This was oriented and then clamped into position. The lugs were drilled. The trial components were removed. The final components were opened on the back table. The periosteal and capsular tissues, especially posteriorly, around the knee were then systematically injected with a periarticular cocktail consisting of 50cc 0.25% Marcaine, 30mg Ketorolac, 20cc of Exparal and 50cc of injectable saline. The knee was thoroughly irrigated with a pulse lavage and dried. Irrisept was also used to irrigate the tissues. On the back table, with the implants opened, the cement was mixed. One batch of high viscosity cement was prepared with vacuum assistance. After the cement was ready a small amount was placed on the cut surface of the patella and the patellar button was clamped into position and held. While the cement was hardening, the cementless knee components were placed. Starting with the tibial component, the tibia was subluxed anteriorly and the lug holes of the component were lined up. The tibia was then impacted with an impactor and mallet until the tibial component was in contact with the tibia. The final polyethylene component was inserted. Then, the femoral component was inserted. The lug holes were aligned and the component was impacted into position. The knee was irrigated with Irrisept chlorhexadine solution. This was allowed to sit in the knee for 3 minutes. After the cement had finally cured, approximately 15min, the clamp was removed from the patella and the knee was taken through range of motion. The patella was tracking with a no-thumbs technique. The capsule was then reapproximated with a No. 1 Vicryl at multiple locations. The capsule was finally closed with a No. 2 Stratafix, barbed suture. The second dosing of 1g TXA was started. Deep tissues were then reapproximated with 0 Vicryl and 2-0 Vicryl. The skin was closed with a running 3-0 Monocryl in a subcuticular fashion. This was reinforced with skin glue. A Mepilex silver dressing was applied along with a [id number] UVALDO wrap. A CryoCuff was applied. Forrest was transferred to the hospital bed without difficulty an suffering no apparent complication. He has a good prognosis. Physical therapy will start today and without restrictions, weight-bearing as tolerated. Aspirin 81mg BID will be used for DVT prophylaxis.
[2020-04-23] MEDS: oxyCODONE 5 MG TAB 10 MG PO (12:30)
--- NOTE | 2020-04-23 13:18 | IN_ITS ---
Date of service: 04/23/20 Time of Service: 13:18 PT Notes Visit Reasons: L Knee DJD Physical Therapy Day Surgery Unit Initial Evaluation Date: 04/23/2020 Referring Doctor: Giovani Espinosa MD PT Orders: PT CONSULT: Status post Ortho surgery. Precautions: WBAT on L LE. Patient Profile/Admitting Diagnosis: Ghanshyam is a 59-year-old male with primary unilateral osteoarthritis of the left knee and is status post left total knee arthroplasty and manipulation under anesthesia on the right knee on postoperative day 0. PMHX: Medical History (Updated 04/11/20 @ 13:46 by SRINIVAS Orellana) Arthritis BPH (benign prostatic hyperplasia) Lumbar spine pain L4-L5 cartilage damage - 1988 Went to [facility] - did 6 months of PT and had improvement Surgical History (Updated 04/11/20 @ 13:46 by SRINIVAS Orellana) Fingers fractured S/P Perc pinning History of total right knee replacement (03/26/20) Status post arthroscopy of left knee Social History/Home Situation: Lives alone in an apartment with a flight of [employer] down to where his bedroom is, rails on both sides. He has 2 steps that lead onto a landing plus another 4 steps to enter the apartment building. States that he has friends who will be willing to help out as needed while he recovers at home. Indicated that his house has been organized and set up to be handicap-accessible. Equipment Owned/DME: FWW, forearm crutches Subjective: Agreeable to PT consult. Reports no pain in either the right or the left knee after ambulation activity. Denies headache, chest pain, and dizziness throughout. No report of numbness nor tingling in bilateral lower extremities. Objective: General Observation: Supine in DSU stretcher. UVALDO wraps to left LE. Cryo/Cuff on left knee. TEDS on R leg. DIPs in the right hand flexed and ulnarly deviated. Mental Status: Alert and oriented x4. Pain: 0/10 ROM: Right Upper Extremity: Shoulder Flexion WFL. Shoulder abduction WFL. Elbow flexion WFL. Wrist flexion WFL. Functional opening and closing of hand WFL. Left Upper Extremity: Shoulder Flexion WFL. Shoulder abduction WFL. Elbow flexion WFL. Wrist flexion WFL. Functional opening and closing of hand WFL. Right Lower Extremity: Hip flexion WFL. Hip abduction WFL. Knee flexion 10 degrees to 100 degrees with pain at end range of motion. Knee extension -10 degrees. Ankle dorsiflexion WFL. Ankle plantarflexion WFL. Left Lower Extremity: Hip flexion WFL. Hip abduction WFL. Knee flexion 20 degrees to 95 degrees. Knee extension -20 degrees. Ankle dorsiflexion WFL. Ankle plantarflexion WFL. Strength: Right Upper Extremity: Shoulder flexors 5/5. Shoulder abductors 5/5. Elbow flexors 5/5. Elbow extensors 5/5. Monumental Stonemason strong. Left Upper Extremity: Shoulder flexors 5/5. Shoulder abductors 5/5. Elbow flexors 5/5. Elbow extensors 5/5. Monumental Stonemason strong. Right Lower Extremity: Hip flexors 4/5. Hip abductors 4/5. Knee flexors 3-/5. Knee extensors 3-/5. Ankle dorsiflexors 5/5. Ankle plantarflexors 5/5. Left Lower Extremity:Hip flexors 5/5. Hip abductors 5/5. Knee flexors 3-/5. Knee extensors 3-/5. Ankle dorsiflexors 5/5. Ankle plantarflexors 5/5. Sensation: Intact as to pain and light pressure in bilateral lower extremities Bed Mobility/Transfers: Rolling independent Supine to sit independent Sit to supine independent Sit to stand contact-guard assist Stand to sit contact-guard assist Bed to chair contact-guard assist Chair to bed contact-guard assist Gait: Guided patient through level surface ambulation of 200 feet using the front wheeled walker with standby assist of PT and wheelchair follow of nurse marble installer supervisor Ariela. Step through heel?toe gait pattern. Patient tends to be impulsive and required minimal cueing for safety. Stairs: Also assisted with stair negotiation techniques for 10 x 4 inch steps while holding onto 1 rail with 1 hand and using a Loftstrand crutch on the other hand using step-to gait pattern with contact-guard assist and standby assist of nurse marble installer supervisor True Lopez for safety. Moderate verbal cueing given for correct technique. Patient tends to be impulsive and required minimal cueing for safety. Balance: Static Sitting: Normal Dynamic Sitting: Normal Static Standing: Good Dynamic Standing: Fair Special Tests: Mobility Limitations Standardized Measure [facility]-P[facility] 6 clicks Basic Mobility Inpatient Short Form: Raw Score: 23 CMS Score: 11% deficit Informed Consent/Education: Patient instructed in purpose of PT consult. Packet containing TKA exercise protocol has been given to patient. Education and training on initial set of exercises that can be done at home have been completed with patient. Assessment: Skip requires the use of front wheeled walker or bilateral Loftstrand crutches to reduce fall risk and maximize independence at home. Again, it was emphasized to him to slow down with each step as he tends to move quickly and increase his risk for losing balance. He was also advised that he has the option of using the front-wheeled walker for more support should his pain level increase. Patient presents with clinical signs and symptoms consistent with current/admitting diagnoses that have resulted to mobility limitations, gait instability, generalized weakness, and impairment of motor control as demonstrated by the following impairment level findings: 1. Decreased strength to left knee major muscle groups 2. Impaired standing balance 3. Limitation of joint range of motion in left knee Impairments are contributing to the following functional limitations: 1. Inability to safely ambulate without assistive device 2. Increase completion time for mobility ADL performance 3. Increased fall risk Patient is assessed as a [id number] moderate complexity based on the following: History: 59-year-old male with impairment level findings, functional limitations, and past medical history as indicated above Examination: Demonstrable impairment in strength, balance, and mobility level with underlying impairments and functional limitations as documented above Presentation: Evolving Decision Makin moderate complexity Goals: N/A. PT evaluation and 1-2 treatment sessions only for functional mobility training using recommended AD and for HEP instruction. Plan of Care/Treatment Plan: N/A. PT evaluation and 1-2 treatment session only for functional mobility training using recommended AD and for HEP instruction. PT INTERVENTION RECEIVED TODAY: Assessment for and fitting of appropriate assistive device. Guided patient through bed mobility, transfers, and mobility ADL performance on level surfaces using front wheeled walker and Loftstrand crutches for stairs in order to reduce fall risk. Educated and trained patient on HEP performance to maximize post- surgical functional outcomes. Educationon the use of Cryocuff device. DISCHARGE RECOMMENDATIONS: Home when medically cleared by orthopedic surgeon. Has a front wheeled walker and bilateral Loftstrand crutches for use at home as needed. May benefit from outpatient PT services in order to facilitate return to unassisted ambulation in the community as previously. TREATMENT CODE/TIME: 26961 x 25 minutes, 76928 x 14 minutes beginning at 13:18 PM. Thank you for the opportunity to participate in the care of this patient. Treva Wiley PT, DPT, CLT [facility] [place], [place]
== END 2020-04-23 14:31 | disposition home or self-care (01) ==
PROVIDERS: PCP Family Medicine; Visit Provider Student in an Organized Health Care Education/Training Program
PROC: (CPT 27447; principal; 2020-04-23 07:30)
DX: M17.32 Unilateral post-traumatic osteoarthritis, left knee (principal); M24.661 Ankylosis, right knee
CPT/HCPCS: 27447; 27570; 76942; 97162; 97530; J0690; J1885; J2250; J2405

== ENCOUNTER 2020-05-08 09:17 | Outpatient (CLI) | payer BC, SELFPAY ==
--- NOTE | 2020-05-08 09:00 | DI.RAD_ITS ---
EXAM: XR KNEE LT 1V CLINICAL HISTORY: 1ST POST OP L TKA. TECHNIQUE: 2D digital imaging was performed. COMPARISON: CR XR KNEE RT 1V from 04/11/2020 CR XR STANDING ALIGNMENT from 05/08/2020 FINDINGS: Lateral view compared to 04/11/2020. There is stable alignment of the components of the prosthesis. No fracture or loosening evident. IMPRESSION: DATA REPOSITORY: RADIATION DOSE DELIVERED:
--- NOTE | 2020-05-08 09:00 | DI.RAD_ITS ---
EXAM: XR STANDING ALIGNMENT CLINICAL HISTORY: 1ST POST OP L TKA. TECHNIQUE: 2D digital imaging was performed. COMPARISON: CR XR STANDING ALIGNMENT from 04/11/2020 CR XR KNEE LT 1V from 04/11/2020 FINDINGS: There has been interval placement of a left knee prosthesis. Components appear to be in satisfactory position there is a calcific density the mid joint level. Difficult to determine if this is the inf erior tip of the patella or calcified intra-articular body. Both hips appear unremarkable as do the ankles. No ominous osseous lesions. IMPRESSION: DATA REPOSITORY: RADIATION DOSE DELIVERED:
== END 2020-05-08 09:18 | disposition home or self-care (01) ==
LOC: DIORS 09:17
PROVIDERS: PCP Family Medicine; Referring Provider Family Medicine; Visit Provider Student in an Organized Health Care Education/Training Program
DX: Z96.652 Presence of left artificial knee joint (principal); Z47.1 Aftercare following joint replacement surgery
CPT/HCPCS: 73560; 77073

== ENCOUNTER 2020-06-06 10:47 | Outpatient (CLI) | payer BC, SELFPAY ==
[2020-06-06 11:30] LABS: Source Nasal/Nares
[2020-06-06 15:19] LABS: COVID-19 PCR Negative (Negative)
== END 2020-06-06 10:48 | disposition home or self-care (01) ==
LOC: LBO 10:48
PROVIDERS: PCP Family Medicine; Visit Provider Student in an Organized Health Care Education/Training Program
DX: Z20.822 Contact with and (suspected) exposure to COVID-19 (principal); Z01.818 Encounter for other preprocedural examination
CPT/HCPCS: 87635

== ENCOUNTER 2020-06-09 11:01 | Day surgery (SDC) | payer BC, SELFPAY ==
[2020-06-09] VITALS (9 sets, daily range): BP systolic 134–164; BP diastolic 84–99; PULSE 45–57; RESP 10–16; TEMP 36.1–36.7; TEMPC 36.8; O2SAT 96–99; BMI 35.5
--- NOTE | 2020-06-09 11:56 | W.ANESPRE ---
Anesthesia Assessment and Plan Anesthesia History Personal History: No History of Anesthesia Complications Family History: No Family History of Anesthesia Complications Exercise Tolerance Exercise Tolerance: Metabolic Equivalents>4 Pertinent Negatives Pertinent Negatives: No Symptoms of GERD, No Major Cardiovascular Symptoms or Complaints, No Major Pulmonary Symptoms or Complaints and No History of CVA/TIA Cardiac & Pulmonary Exam Cardiac Exam: Normal S1/S2 Heart Sounds Pulmonary Exam: Clear Bilateral Breath Sounds Airway Exam Known Difficult Airway: No Mallampati Class: 1 Mouth Opening: Normal (> 3cm) Thyromental Distance: Greater than 3 cm Neck Range of Motion: Full ROM Neck Circumference: Normal Teeth Condition: Normal Dentition ASA Classification ASA Score: ASA 2 ASA Emergency: No NPO Status NPO Status: NPO Clears >2 hours, Solids >8 hours Anesthesia Plan Anesthesia Technique: General Anesthesia Airway Planned: LMA Monitors Used: Standard Monitors General Info Date of Service This is a Shared Provider Document. All providers who document on this will be required to sign document once completed. Please Communicate with Team Date Performed: 06/09/20 Height: 5 ft 10 in Weight: 112.4 kg Body Mass Index (BMI): 35.5 Surgical Procedure: Operation Date: 06/09/20 12:40 Proposed Procedures Side Surgeon p Knee Manipulation of Knee Bilateral Giovani Espinosa MD Vital Signs and Lab Results Vital Signs Most Recent Vital Signs in EMR: Most Recent Vital Signs Temp Pulse Resp BP Pulse Ox 36.7 C 57 L 16 134/84 99 06/09/20 11:44 06/09/20 11:44 06/09/20 11:44 06/09/20 11:44 06/09/20 11:44 Point of Care Results Nursing Point of Care Results: No Data to Display Lab Results Blood Type / Crossmatch: No Data to Display Complete Blood Count: White Blood Count 4.99 10^3/uL (4.4-10.8) 03/21/20 11:20 03/21/20 Red Blood Count 4.87 10^6/uL (4.36-5.78) 03/21/20 11:20 03/21/20 Hemoglobin 14.7 g/dL (13.5-17.5) 03/21/20 11:20 03/21/20 Hematocrit 44.4 % (40.0-50.0) 03/21/20 11:20 03/21/20 Platelet Count 206 10^3/uL (130-400) 03/21/20 11:20 03/21/20 Complete Metabolic Panel: Sodium Level 140 mmol/L (136-145) 03/21/20 11:20 03/21/20 Potassium Level 4.3 mmol/L (3.5-5.1) 03/21/20 11:20 03/21/20 Chloride Level 103 mmol/L (98-107) 03/21/20 11:20 03/21/20 Carbon Dioxide Level 28.6 mmol/L (21.0-32.0) 03/21/20 11:20 03/21/20 Blood Urea Nitrogen 13 mg/dL (7-18) 03/21/20 11:20 03/21/20 Creatinine 1.0 mg/dL (0.70-1.30) 03/21/20 11:20 03/21/20 Calcium Level 8.8 mg/dL (8.5-10.1) 03/21/20 11:20 03/21/20 Albumin 3.7 g/dL (3.4-5.0) 06/19/19 16:30 06/19/19 Glucose Level 101 mg/dL (74-106) 03/21/20 11:20 03/21/20 Hemoglobin A1c 5.5 % (3.8-5.6) 06/19/19 16:30 06/19/19 Liver Function Panel: Alanine Aminotransferase (ALT/SGPT) 45 U/L (16-63) 06/19/19 16:30 06/19/19 Aspartate Amino Transf (AST/SGOT) 19 U/L (15-37) 06/19/19 16:30 06/19/19 Coagulation Panel: No Data to Display Cardiac Panel: No Data to Display Arterial Blood Gas: No Data to Display Venous Blood Gas: No Data to Display Pancreas Panel: No Data to Display Thyroid Panel: Thyroid Stimulating Hormone (TSH) 1.38 uIU/mL (0.36-3.74) 03/12/15 08:05 03/12/15 Infectious Disease: Coronavirus (COVID-19)(PCR) Negative (Negative) 06/06/20 10:14 06/06/20 Coronavirus 2019 Source Nasal/nares 06/06/20 10:14 06/06/20 Hepatitis C Antibody Negative (Negative) 06/19/19 16:30 06/19/19 Blood Cultures: Blood Culture Toxicology Panel: No Data to Display Panel: No Data to Display PFSH Active Problems Active Problems: Problem Status Onset Code Arthrofibrosis of total knee arthroplasty T84.82XA History of total left knee replacement Z96.652 History of total right knee replacement 03/26/20 Z96.651 Post-traumatic osteoarthritis of left knee M17.32 Medical History (Updated 06/09/20 @ 11:41 by Clare Avendano) Arthritis BPH (benign prostatic hyperplasia) Hx of sprain of ankle R ankle Lumbar spine pain L4-L5 cartilage damage - 1988 Went to [facility] - did 6 months of PT and had improvement Surgical History Fingers fractured S/P Perc pinning History of total left knee replacement History of total right knee replacement (03/26/20) Status post arthroscopy of left knee Social History Smoking/Tobacco Use Status: Former Tobacco Use Quit Date: 02/14/05 Smoking risk assessment performed?: Yes Alcohol Intake: current Alcohol Intake frequency: a few times a week Alcohol type: beer Drug use: Never Substance use type: does not use Details: alcohol: t-3 current occupation: Real Estate Legal Secretary - at [employer] Do you feel safe at home: Yes Do you feel safe in your relationship?: Yes Meds Allergies and Home Medications Allergies Allergy/AdvReac Type Severity Reaction Status Date / Time No Known Allergies Allergy Unverified 06/09/20 11:38 Home Medication Medication Instructions Recorded finasteride 5 mg PO DAILY 02/15/20 tamsulosin 0.4 mg PO DAILY 02/15/20 multivitamin 1 tab PO DAILY 03/24/20 acetaminophen 500 mg PO Q6H PRN PRN #90 tab 03/26/20 Current Visit Medications: Current Medications Generic Name Dose Route Start Last Admin Trade Name Freq PRN Reason Stop Dose Admin Ringer's Solution 1,000 mls @ 80 mls/hr 06/09/20 06:00 IV 07/06/20 23:59 INFUSION ROM IV Miscellaneous Supplies 1 each 06/09/20 06:00 Iv Access IV 05/23/21 23:59 DIRECTED ROM Sodium Chloride 0 ml 06/09/20 06:00 Normal Saline Flush 10 Ml Syr IV 07/06/20 23:59 PRN PRN Sodium Chloride 0 ml 06/09/20 06:00 Normal Saline 10 Ml Vial IJ 07/06/20 23:59 DIRECTED PRN Sterile Water 0 ml 06/09/20 06:00 Water,Injection,Sterile 10 Ml Vial IJ 07/06/20 23:59 DIRECTED PRN
[2020-06-09] MEDS: Lactated Ringers 1,000 ML 80 ML IV (12:00)
[2020-06-09] MEDS: Bupivacaine 0.25% Pres-Free 30 ML VIAL (12:16)
--- NOTE | 2020-06-09 12:21 | PDOC.DSDIS_ITS ---
Documented by User: SRINIVAS Orellana 06/09/20 12:26 Discharge Plan Disposition Patient Disposition: HOME Condition: Good Discharge Details Reason For Visit: Left knee manipulation Attending Provider: Giovani Espinosa Primary Care Provider: Martín Griffith Home Meds and New Rx's Prescriptions: New acetaminophen 500 mg capsule 1,000 mg PO Q8H PRN PRNQty: 90 RF: 0 hydrocodone-acetaminophen 5-325 mg tablet 1 tab PO Q6H PRN (Reason: pain) Qty: 6 RF: 0 ibuprofen 600 mg tablet 600 mg PO TID PRN (Reason: pain) Qty: 30 RF: 0 Continued multivitamin Tablet 1 tab PO DAILY RF: 0 tamsulosin 0.4 mg capsule 0.4 mg PO DAILY RF: 0 finasteride 5 mg tablet 5 mg PO DAILY RF: 0 Discontinued acetaminophen 500 mg tablet 500 mg PO Q6H PRN PRN (Reason: pain) Qty: 90 RF: 3 Discharge Instructions Additional Instructions: Knee Manipulation Discharge Instructions Activity: You should begin moving as soon as possible. You may work on flexion but also equally maintain extension. You may bear weight as tolerated, using crutches only for support/comfort. You should apply ice to help with swelling and elevate when possible (especially in the first few days). Dressings: The knee dressing may come down after 48 hours. You may shower and get the wound wet at that time. Medications: - Rarely does this require any stronger pain medications. - Recommend to take up to 1000mg of Acetaminophen (Tylenol) and 600mg of Ibuprofen (Advil) every 8 hours as needed. These larger strength tablets were called in but you also may use [id number]. Follow-up: 7-10 days. You should start physical therapy right away as scheduled. Referrals: Giovani Espinosa MD [ [facility] STAFF PHYSICIAN] - Equipment/Supplies: Partial Weight Bearing Crutches Activity:: Activity as Tolerated Remove Dressings/Wound Care:: 24 hours Shower/Bathe:: 24 hours Diet:: As Tolerated Discharge Orders Discharge Orders: Discharge Order (Routine); Ordered 06/09/20 Ordered By: Michael Mesa DS: Diagnosis Discharge Diagnosis (1) Arthrofibrosis of total knee arthroplasty: Status: Acute Documented by User: Giovani Espinosa MD 06/09/20 12:30 Discharge Plan Disposition Patient Disposition: HOME Condition: Good Discharge Details Reason For Visit: Left knee manipulation Attending Provider: Giovani Espinosa Primary Care Provider: Martín Griffith Home Meds and New Rx's Prescriptions: New acetaminophen 500 mg capsule 1,000 mg PO Q8H PRN PRNQty: 90 RF: 0 hydrocodone-acetaminophen 5-325 mg tablet 1 tab PO Q6H PRN (Reason: pain) Qty: 6 RF: 0 ibuprofen 600 mg tablet 600 mg PO TID PRN (Reason: pain) Qty: 30 RF: 0 Continued multivitamin Tablet 1 tab PO DAILY RF: 0 tamsulosin 0.4 mg capsule 0.4 mg PO DAILY RF: 0 finasteride 5 mg tablet 5 mg PO DAILY RF: 0 Discontinued acetaminophen 500 mg tablet 500 mg PO Q6H PRN PRN (Reason: pain) Qty: 90 RF: 3 Discharge Instructions Additional Instructions: Knee Manipulation Discharge Instructions Activity: You should begin moving as soon as possible. You may work on flexion but also equally maintain extension. You may bear weight as tolerated, using crutches only for support/comfort. You should apply ice to help with swelling and elevate when possible (especially in the first few days). Dressings: The knee dressing may come down after 48 hours. You may shower and get the wound wet at that time. Medications: - Rarely does this require any stronger pain medications. - Recommend to take up to 1000mg of Acetaminophen (Tylenol) and 600mg of Ibuprofen (Advil) every 8 hours as needed. These larger strength tablets were called in but you also may use [id number]. Follow-up: 7-10 days. You should start physical therapy right away as scheduled. Referrals: Giovani Espinosa MD [ [facility] STAFF PHYSICIAN] - Equipment/Supplies: Partial Weight Bearing Crutches Activity:: Activity as Tolerated Remove Dressings/Wound Care:: 24 hours Shower/Bathe:: 24 hours Diet:: As Tolerated Discharge Orders Discharge Orders: Discharge Order (Routine); Ordered 06/09/20 Ordered By: Michael Mesa
--- NOTE | 2020-06-09 12:43 | W.ANESPOSTOP ---
Postoperative Evaluation Date, Time and Location Date Performed: 06/09/20 Time Performed: 12:43 Patient Location: PACU Vital Signs Most Recent Imported Vital Signs: Most Recent Vital Signs Temp Pulse Resp BP Pulse Ox 36.7 C 57 L 16 134/84 99 06/09/20 11:44 06/09/20 11:44 06/09/20 11:44 06/09/20 11:44 06/09/20 11:44 Most Recent Manually Entered Vital Signs: Adult Blood Pressure: 155/93 Heart Rate: 56 Respirations: 12 Oxygen Saturation (%): 98 Temperature (C): 36.8 C Pain Score (0-10 Scale): 4 Assessment Mental Status: Awake (Alert & Oriented to Patient Baseline) Airway and Respiratory Function: Patent airway with normal (patient baseline) respiratory exam Cardiovascular Function: Hemodynamically Stable Hydration Status: Adequately Hydrated Nausea & Vomiting: No Nausea or Vomiting Pain: Pt. Denies Any Pain Peripheral Nerve Block: Patient did not receive a nerve block Teaching Patient Teaching: Discussed Safe Use of Pain Medication Given Recent Anesthesia
--- NOTE | 2020-06-09 12:58 | ROE_ITS ---
Date of service: 06/09/20 Time of Service: 12:38 Operative Note Operative Note DATE OF PROCEDURE: 06/09/20 PRE-OP DIAGNOSIS: Bilateral Knee Arthrofibrosis s/p Replacement POST-OP DIAGNOSIS: same PROCEDURE: Bilateral Knee Manipulation Under Anesthesia SURGEON: Giovani Espinosa ANESTHESIA TYPE: General LMA/ETT Refer to Anesthesia Record ESTIMATED BLOOD LOSS: 0 PATHOLOGY: none sent TOURNIQUET TIME: 0 COMPLICATIONS: None Patient was transported to: PACU Patient's condition: stable Indications: hGanshyam is a 59 year old male who is s/p knee replacement. Despite diligent work with physical therapy there has been continued stiffness, left much worse than right. To assist with mobility, I offered a manipulation under anesthesia. I discussed the risks of the procedure to include bleeding, pain, recurrent stiffness, fracture. Despite these risks, he elects to proceed. Findings: LEFT Preoperative flexion = 90 Postoperative flexion = 115 Preoperative extension = 5 Postoperative extension = 0 RIGHT Preoperative flexion = 110 Postoperative flexion = 120 Preoperative extension = 0 Postoperative extension = 0 Procedure Description: The patient is agreed in the preoperative holding area. Identity was confirmed and the correct side was identified and marked. The consent was reviewed the patient and signed. History and physical was updated. Ghanshyam was taken back to the operating room. A timeout was performed for safe surgery. A general anesthetic was administered. The knees were then prepped with ChloraPrep and an intra-articular injection of 10 cc of 0.5% bupivacaine was administered to each knee under sterile conditions. Once a muscle relaxant was fully on board manipulation was performed. Pre- manipulation range of motion was noted. The left knee was manipulated first. A gentle manipulation was performed first into flexion using a very small lever arm and adding gentle and progressive pressure to the tibia. There is audible and palpable crepitus with improvement in range of motion. This was cycled and repeated multiple times. The leg was then brought into extension and gentle anterior posterior pressure was applied with a supported hand behind the pr oximal tibia and knee. This was brought back into flexion was once again manipulated with gentle and progressive pressure. Attention was then turned to the right knee. A gentle manipulation was pe rformed first into flexion using a very small lever arm and adding gentle and progressive pressure to the tibia. There is audible and palpable crepitus with improvement in range of motion. This was cycled and repeated multiple times. Final range of motion numbers were recorded. Ghanshyam was awake from anesthesia and taken to the PACU in stable condition.
[2020-06-09] MEDS: HYDROmorphone 2 MG/ML VIAL IVP ×2 (13:02→13:27)
== END 2020-06-09 15:11 | disposition home or self-care (01) ==
PROVIDERS: PCP Family Medicine; Visit Provider Student in an Organized Health Care Education/Training Program
PROC: (CPT 27570; principal; 2020-06-09 12:30)
DX: T84.82XA Fibrosis due to internal orthopedic prosthetic devices, implants and grafts, initial encounter (principal); Z96.653 Presence of artificial knee joint, bilateral
CPT/HCPCS: 27570; J0131; J1100; J1885; J2001; J2405; J2704

== ENCOUNTER 2021-04-06 11:46 | Outpatient (CLI) | payer SELFPAY ==
--- NOTE | 2021-04-06 09:45 | DI.RAD_ITS ---
Exam(s) XR KNEE LT 2V AP,LAT EXAM: XR KNEE LT 2V AP,LAT CLINICAL HISTORY: ANNUAL F/U L TKA. TECHNIQUE: 2D digital imaging was performed. COMPARISON: CR XR STANDING ALIGNMENT from 05/08/2020 CR XR KNEE LT 1V from 05/08/2020 FINDINGS: Stable position alignment of the components of the prosthesis. No fracture or loosening evident. Osteophytic density parallel to the outer aspect of the medial femoral condyle is unchanged from 04/15 and may reflect prior MCL region injury. IMPRESSION: Stable appearance, unchanged from 05/08/2020. DATA REPOSITORY: RADIATION DOSE DELIVERED:
--- NOTE | 2021-04-06 09:45 | DI.RAD_ITS ---
Exam(s) XR KNEE RT 2V AP,LAT EXAM: XR KNEE RT 2V AP,LAT CLINICAL HISTORY: annual f/u R TKA. TECHNIQUE: 2D digital imaging was performed. COMPARISON: CR XR KNEE RT 1V from 04/11/2020 CR XR STANDING ALIGNMENT from 05/08/2020 FINDINGS: Components of the prosthesis remain stable. No fracture or loosening evident. Calcification is note d approximately 4 cm above the patella, unchanged from previous. IMPRESSION: DATA REPOSITORY: RADIATION DOSE DELIVERED:
== END 2021-04-06 11:47 | disposition home or self-care (01) ==
LOC: DIORS 11:46
PROVIDERS: PCP Family Medicine; Referring Provider Family Medicine; Visit Provider Student in an Organized Health Care Education/Training Program
DX: Z96.653 Presence of artificial knee joint, bilateral (principal); Z47.1 Aftercare following joint replacement surgery; M17.32 Unilateral post-traumatic osteoarthritis, left knee
CPT/HCPCS: 73560

== ENCOUNTER 2022-03-26 11:28 | Outpatient (CLI) | payer SELFPAY ==
--- NOTE | 2022-03-26 09:45 | DI.RAD_ITS ---
Exam(s) XR KNEE RT 3V AP,LAT,ZINA EXAM: XR KNEE RT 3V AP,LAT,ZINA CLINICAL HISTORY: ANNUAL F/U R TKA. TECHNIQUE: 2D digital imaging was performed. Three images were obtained. AP, PA and lateral views w ere obtained. COMPARISON: CR XR KNEE RT 2V AP,LAT from 04/06/2021 FINDINGS: BONES: There are stable post operative changes present. No fracture or dislocation. JOINTS: The orthopedic hardware is in good position. No evidence of hardware loosening. SOFT TISSUE: Normal. IMPRESSION: Stable postoperative changes. DATA REPOSITORY: RADIATION DOSE DELIVERED:
--- NOTE | 2022-03-26 10:00 | DI.RAD_ITS ---
Exam(s) XR KNEE LT 3V AP,LAT,ZINA EXAM: XR KNEE LT 3V AP,LAT,ZINA CLINICAL HISTORY: ANNUAL F/U L TKA. TECHNIQUE: 2D digital imaging was performed. Three images were obtained. AP, PA and lateral views w ere obtained. COMPARISON: CR XR KNEE LT 2V AP,LAT from 04/06/2021 FINDINGS: BONES: There are stable post operative changes present. No fracture or dislocation. JOINTS: The orthopedic hardware is in good position. No evidence of hardware loosening. SOFT TISSUE: Atherosclerosis is present. IMPRESSION: Stable postoperative changes. DATA REPOSITORY: RADIATION DOSE DELIVERED:
--- OUTSIDE RECORDS SUMMARY | 2022-03-26 11:34 | XMS_ITS ---
Author Name Unknown Organization Unknown Support Name Relationship Address Phone [employer] [address] [place] [address] PROBLEMS Unknown Problems ALLERGIES No Known Allergies ENCOUNTERS Encounter Location Date Diagnosis [facility] [address] [place] [address] Aug, Impingement syndrome, shoulder, left 726.2 and Osteoarthritis, knee 715.36 [facility] [address] [place] [phone] Jul, [facility] [address] [place] [phone] Jul, [facility] [address] [place] [address] Jul, Right knee pain 719.46 [facility] [place] [address] [place] [address] Jul, Left shoulder tendonitis 726.10 ; Impingement syndrome, shoulder, left 726.2 and Osteoarthritis, knee 715.36 IMMUNIZATIONS No Known Immunizations SOCIAL HISTORY Never Assessed REASON FOR REFERRAL FUNCTIONAL STATUS PLAN OF CARE Activity Details VITAL SIGNS Height 70 in 2014-09-09 Weight 236.5 lbs 2014-09-09 BMI 33.93 kg/m2 2014-09-09 MEDICATIONS Medication Instructions Dosage Frequency Start Date End Date Duration Status Synvisc 16 MG/2ML Intra-articular weekly as directed Aug, 21 days Active Tylenol #3 300mg/30mg PO Q6h PRN DX: 724.5 1 tablet Jul, 30 days Active Advil 200 MG Orally every 6 hrs 1 tablet as needed 6h Active PROCEDURES Procedure Date Ordered Result Body Site INJ DEXETHOSONE SODIM PHOSHATE 1 MG August 05, 2014 DRAIN/INJECT, JOINT/BURSA August 05, 2014 X-RAY EXAM OF KNEE, 3 August 05, 2014 RESULTS Name Result Date Reference Range XRAY KNEE RIGHT 2014-08-05 Exam: Right knee and patella, 3 views. Findings: An AP view of the left kidney is included. No prio r available. History of pain and no known injury are described. There is mild narrow ing of the medial joint space with marginal osteophytes. There is moderate narrowin g at the patellofemoral space and hypertrophic changes. There is unremarkable feng llar alignment. There is dorsal spur of the patella. No suspicious focal bony abnormali ties soft tissue calcifications seen. Consider additional evaluation if indicated. The co mparison AP view of the LEFT knee shows moderate to severe medial degenerative joint disease. 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 Electronically Signed By: Saturnino Gallegos [facility] Date: 08/07/2014 8:54 AM Electronically signed by:Jhon Marion , REASON FOR VISIT MEDICAL (GENERAL) HISTORY Type Description Date Surgical History lft knee scope
== END 2022-03-26 11:29 | disposition home or self-care (01) ==
LOC: DIORS 11:28
PROVIDERS: PCP Family Medicine; Visit Provider Student in an Organized Health Care Education/Training Program
DX: Z96.653 Presence of artificial knee joint, bilateral (principal); Z47.1 Aftercare following joint replacement surgery; M25.562 Pain in left knee
CPT/HCPCS: 73562

== ENCOUNTER 2022-05-24 16:16 | Outpatient (REF) | payer SELFPAY ==
[2022-05-24 18:58] LABS: ALT 49 U/L (16-63); AST 27 U/L (15-37); Albumin 3.9 g/dL (3.4-5.0); Alkaline Phosphatase 56 U/L (46-116); Anion Gap 6.1 mmol/L (3-11); BUN 14 mg/dL (7-18); Bilirubin, Total 0.5 mg/dL (0.2-1.0); CO2 27.9 mmol/L (21.0-32.0); CREATININE 0.9 mg/dL (0.70-1.30); Calcium 8.9 mg/dL (8.5-10.1); Chloride 104 mmol/L (98-107); Estimated GFR 96.57 (mL/min/1.73m2); Glucose 96 mg/dL (74-106); Potassium 4.2 mmol/L (3.5-5.1); Sodium 138 mmol/L (136-145); Total Protein 7.2 g/dL (6.4-8.2)
[2022-05-24 19:07] LABS: Hemoglobin A1C 5.5 % (<5.7)
[2022-05-25 19:19] LABS: PSA, Screening 2.1 ng/mL (<=4.5)
== END 2022-05-24 16:17 | disposition home or self-care (01) ==
LOC: NCHCN 16:16
PROVIDERS: PCP Family Medicine; Visit Provider Family Medicine
DX: Z00.00 Encounter for general adult medical examination without abnormal findings (principal); R74.01 Elevation of levels of liver transaminase levels
CPT/HCPCS: 80053; 84153; 83036

== ENCOUNTER 2023-03-25 11:09 | Outpatient (CLI) | payer SELFPAY ==
--- NOTE | 2023-03-25 10:16 | DI.RAD_ITS ---
Exam(s) XR KNEE RT 2V AP,LAT EXAM: XR KNEE RT 2V AP,LAT CLINICAL HISTORY: ANNUAL F/U R TKA. TECHNIQUE: 2D digital imaging was performed. COMPARISON: CR XR KNEE LT 3V AP,LAT,ZINA from 03/26/2022 CR XR KNEE RT 3V AP,LAT,ZINA from 03/26/2022 FINDINGS: Two views. There is stable position alignment of the components of the right knee prosthesis. No fracture or lo osening evident. No radiographic change from 1 year ago. IMPRESSION: Stable satisfactory appearance DATA REPOSITORY: RADIATION DOSE DELIVERED:
== END 2023-03-25 11:10 | disposition home or self-care (01) ==
LOC: DIORS 11:09
PROVIDERS: PCP Family Medicine; Visit Provider Physician Assistant
DX: Z96.651 Presence of right artificial knee joint (principal); Z47.1 Aftercare following joint replacement surgery
CPT/HCPCS: 73560

== ENCOUNTER 2023-05-09 09:16 | Emergency (ER) | payer SELFPAY ==
[2023-05-09] VITALS (37 sets, daily range): BP systolic 151–190; BP diastolic 76–150; PULSE 44–72; RESP 12–24; O2SAT 94–99
--- NOTE | 2023-05-09 09:15 | RT.EKG_ITS ---
APPROVED REPORT Exam: Resting ECG Reason for Exam: chest pain Patient Location: E HR:53 bpm ECG Measurements Heart Rate 53 AXIS NJ 199 P 20 QRSd 103 QRS -18 QT 495 T 5 QTc 467 Conclusion Sinus bradycardia...rate< 60
--- NOTE | 2023-05-09 09:25 | W.ED.GENAD ---
Discharge Plan Disposition Patient Disposition: Home Condition: Stable Discharge Details Clinical Impression: Chest pain Primary Care Provider: Martín Griffith ED Provider: David Duran Home Meds and New Rx's Prescriptions: Continued multivitamin Tablet 1 tab PO DAILY acetaminophen 500 mg capsule 1,000 mg PO Q8H PRN PRNQty: 90 0RF ibuprofen 600 mg tablet 600 mg PO TID PRN (Reason: pain) Qty: 30 0RF Discharge Instructions Instructions: Chest Pain (ED) Additional Instructions: Your blood work and x-ray did not show concerning findings at this time Follow-up with your primary care provider within 1 week If you feel more ill, have difficulty breathing or severe worsening pain return to the emergency department for reevaluation HPI General Mode of arrival: ambulatory. Date/Time Provider Initiated Documentation: 05/09/23 09:16. Limitations to Documentation: no limitations. Information obtained by: patient. History of Present Illness 62 year old M presents to the emergency department with the chief complaint of Chest pain, described as moderate, Patient started experiencing this day(s) (1) and it has been constant. No relieving factors improve symptom(s), No exacerbating factors reported . Patient notes denies fever/chills and shortness of breath. Related Data Home Medications Medication Instructions Recorded Confirmed multivitamin 1 tab PO DAILY 03/24/20 05/09/23 acetaminophen 500 mg capsule 1,000 mg (2 x 500 mg) PO Q8H PRN 06/09/20 05/09/23 PRN #90 caps ibuprofen 600 mg tablet 600 mg PO TID PRN pain #30 tabs 06/09/20 05/09/23 Previous Rx's Medication Instructions Recorded acetaminophen 500 mg capsule 1,000 mg (2 x 500 mg) PO Q8H PRN 06/09/20 PRN #90 caps ibuprofen 600 mg tablet 600 mg PO TID PRN pain #30 tabs 06/09/20 Allergies Allergy/AdvReac Type Severity Reaction Status Date / Time No Known Allergies Allergy Unverified 05/09/23 09:22 General Stated Complaint: Chest Pain MACEY: 3 Review of Systems All systems reviewed & are unremarkable except as noted in HPI and below Constitutional Constitutional: Denies chills, Denies fever(s) and Denies weakness Cardiovascular Cardiovascular: Reports chest pain and Denies dyspnea Respiratory Respiratory: Denies cough and Denies dyspnea Gastrointestinal Gastrointestinal: Denies abdominal pain, Denies nausea and Denies vomiting Musculoskeletal Musculoskeletal: Denies joint swelling Neurologic Neurologic: Denies weakness Psychiatric Psychiatric: Denies depression Exam Const General: no acute distress Orientation: alert [facility] Head: normal to inspection Ears: external ears normal General nose exam: external nose normal Mouth: moist mucous membranes Eyes General: appearance normal, both eyes and all related structures Neck Neck: normal visual inspection Resp Effort & Inspection: normal respiratory effort and able to speak in complete sentences Auscultation: clear to auscultation bilaterally Cardio Jugular venous pressure: no JVD Rate: regular rate Heart Sounds: no murmurs Skin General skin exam: no rashes or lesions noted Neuro General: patient alert and patient oriented x3 Extrem General: normal to inspection Psych Mental Status: mental status grossly normal Course Vital Signs Vital signs: Vital Signs Pulse 55 L 05/09/23 09:19 Respiratory Rate 18 05/09/23 09:19 Pulse Oximetry 97 05/09/23 09:19 Pulse 55 L 05/09/23 09:19 Respiratory Rate 18 05/09/23 09:19 Blood Pressure Position Sitting 05/09/23 09:19 Pulse Oximetry 97 05/09/23 09:19 Oxygen Delivery Method Room Air 05/09/23 09:19 Oxygen Flow Rate 0 05/09/23 09:19 Medical Decision Making 62-year-old male who denies any significant chronic history, no prior cardiac history, very remote history of smoking, who comes in with chest pain since yesterday. He localizes it to the right anterior chest and states it radiates down his right arm. Denies any diaphoresis, no nausea vomiting, no back pain. He is alert and oriented x 4 on arrival ambulating without any visible signs of distress. He has no rashes on chest wall, lungs are clear, no murmurs, no JVD, no leg swelling or calf tenderness. He does have reproducible tenderness to the right anterior chest which makes me question chest wall pain but given his age, will obtain troponin, CBC, CMP, and send D-dimer. No tearing back pain and equal peripheral pulses so doubt dissection. Labs unremarkable, D-dimer below age-adjusted threshold, delta troponin negative, x-ray unremarkable. Patient stable, discussed results with patient, he will follow-up with his primary care provider and return precautions given Differential Diagnosis Differential Diagnosis: Chest wall pain, NSTEMI Imaging Data Radiologic Study: Attestation: I personally reviewed and interpreted this imaging study as follows: Imaging: X-Ray Radiologist's impression: No acute findings Lab Data Lab results reviewed: Yes I reviewed the patient's lab results. ECG Data Attestation: I personally reviewed and interpreted this ECG (s) as follows: Prior ECG tracings: not available for review Interpretation: Sinus bradycardia rate of 53, NV 199 no STEMI Quality:SDOH Health Related Social Needs: No Data to Display PFSH All Active Problems (Updated 05/09/23 @ 12:21 by David Duran MD) Chest pain (Acute) Medical History (Updated 05/09/23 @ 12:21 by David Duran MD) Hx of sprain of ankle R ankle Lumbar spine pain L4-L5 cartilage damage - 1988 Went to [facility] - did 6 months of PT and had improvement BPH (benign prostatic hyperplasia) Arthritis Surgical History (Updated 03/25/23 @ 10:27 by SRINIVAS Orellana) 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) History of total right knee replacement (03/26/20) Arthrofibrosis of total knee arthroplasty LEFT S/P Bilateral manipulation: 06/09/2020 Status post arthroscopy of left knee Fingers fractured S/P Perc pinning Social History Smoking/Tobacco Use Status: Former Tobacco Use Quit Date: 02/14/05 Smoking risk assessment performed?: Yes Alcohol Intake: current Alcohol Intake frequency: a few times a week Alcohol type: beer Drug use: Occasionally Substance use type: marijuana current occupation: Relief Pharmacist - at [employer] Do you feel safe at home: Yes Do you feel safe in your relationship?: Yes
--- NOTE | 2023-05-09 09:30 | DI.RAD_ITS ---
Exam(s) XR PORTABLE CHEST AP EXAM: XR PORTABLE CHEST APz CLINICAL HISTORY: chest pain TECHNIQUE: 2D digital imaging was performed. COMPARISON: No exams were available for comparison FINDINGS: LUNGS: Clear. No pleural abnormality seen. HEART: Normal size. AORTA: Normal diameter. BONES: Unremarkable for age. Soft tissues: Unremarkable. IMPRESSION: No acute findings. DATA REPOSITORY: RADIATION DOSE DELIVERED:
[2023-05-09 09:32] LABS: Abs Immature Grans 0.02 10^3/uL (0.0-0.06); Absolute Basophil Count 0.07 10^3/uL (0.0-0.2); Absolute Eosinophil Count 0.12 10^3/uL (0.0-0.7); Absolute Lymphocyte Count 1.42 10^3/uL (1.2-3.4); Absolute Monocyte Count 0.45 10^3/uL (0.1-0.8); Eosinophils % 1.7; HCT 44.9 % (40.0-50.0); HGB 15.3 g/dL (13.5-17.5); Immature Grans % 0.3; Lymphocytes % 20.6; MCH 30.5 pg (27.0-33.0); MCHC 34.1 % (32.0-36.0); MCV 90 fL (80-95); MPV 9.4 fL (8.0-11.0); Monocytes % 6.5; Neutrophils % 69.9; Platelet Count 227 10^3/uL (130-400); RBC 5.01 10^6/uL (4.36-5.78); RDW 12.6 % (11.8-14.1); RDW-SD 41.2 fL; WBC 6.88 10^3/uL (4.4-10.8)
[2023-05-09] MEDS: Aspirin 81 MG CHEW 324 MG CH (09:37)
[2023-05-09 09:46] LABS: INR 1.1 (0.9-1.1); PTT Activated 25.6 sec (23.6-32.8); Prothrombin Time 10.7 sec (9.1-11.1)
[2023-05-09 09:51] LABS: ALT 46 U/L (16-63); AST 24 U/L (15-37); Albumin 3.8 g/dL (3.4-5.0); Alkaline Phosphatase 55 U/L (46-116); Anion Gap 9.5 mmol/L (3-11); BUN 17 mg/dL (7-18); Bilirubin, Total 0.9 mg/dL (0.2-1.0); CO2 26.5 mmol/L (21.0-32.0); CREATININE 0.9 mg/dL (0.70-1.30); Calcium 8.8 mg/dL (8.5-10.1); Chloride 103 mmol/L (98-107); Estimated GFR 95.97 (mL/min/1.73m2); Glucose 137 mg/dL (74-106); Lipase 34 U/L (16-77); Potassium 4.1 mmol/L (3.5-5.1); Sodium 139 mmol/L (136-145); Total Protein 7.3 g/dL (6.4-8.2); Troponin I < 50 ng/L (< or =60)
[2023-05-09 10:18] LABS: D-Dimer 508 ng/mlFEU (<500)
[2023-05-09] MEDS: Ketorolac 15 MG/ML VIAL IVP ×2 (11:32→13:03)
[2023-05-09] MEDS: Normal Saline Flush 10 ML SYR IVP (11:32)
[2023-05-09 12:43] LABS: Troponin I < 50 ng/L (< or =60)
== END 2023-05-09 13:04 | disposition home or self-care (01) ==
PROVIDERS: Emergency Provider Emergency Medicine; PCP Family Medicine
DX: R07.9 Chest pain, unspecified (principal); R20.0 Anesthesia of skin; R00.1 Bradycardia, unspecified; Z87.891 Personal history of nicotine dependence
CPT/HCPCS: 80053; 83690; 93005; 96374; 96376; 99285; 71045; 83735; 84484; 85025; 85379; 85610; 85730; 93010; 99284; J1885

== ENCOUNTER 2023-05-16 20:35 | Outpatient (REF) | payer SELFPAY ==
[2023-05-16 18:55] LABS: Calculated LDL 114 mg/dL (<100); Cholesterol 211 mg/dL (<200); HDL Cholesterol 51 mg/dL (40-60); Triglyceride 230 mg/dL (<150)
[2023-05-17 18:45] LABS: PSA, Screening 1.9 ng/mL (<=4.5)
== END 2023-05-16 20:36 | disposition home or self-care (01) ==
LOC: NCHCN 20:35
PROVIDERS: PCP Family Medicine; Visit Provider Family Medicine
DX: Z19.1 Hormone sensitive malignancy status (principal)
CPT/HCPCS: 80061; 84153